=== PATIENT | male | born 1995 | race Caucasian/White ===

== ENCOUNTER 2018-06-15 04:30 | Emergency (ER) | payer MEDICAID ==
[~2018-06-15] VITALS: Ht 185.4 cm; Wt 97.5 kg
[2018-06-15 05:49] VITALS: BP 115/65
[2018-06-15 06:39] LABS: microscopic required? YES; urine erythrocyte 3+ (NEGATIVE)
== END 2018-06-15 05:49 | disposition home or self-care (01) ==
LOC: ED 04:30
PROVIDERS: Specialist
DX: N39.0 Urinary tract infection, site not specified (principal)
CPT/HCPCS: 87491; 87591; J0696

== ENCOUNTER 2018-09-29 10:20 | Emergency (ER) | payer SELFPAY ==
[2018-09-29 10:26] VITALS: Ht 185.4 cm
[2018-09-29 11:48] VITALS: BP 132/84
== END 2018-09-29 11:48 | disposition home or self-care (01) ==
LOC: ED 10:20
DX: S93.401A Sprain of unspecified ligament of right ankle, initial encounter (principal); Z98.890 Other specified postprocedural states; X50.1XXA Overexertion from prolonged static or awkward postures, initial encounter; Y93.89 Activity, other specified; Y92.89 Other specified places as the place of occurrence of the external cause; Y99.8 Other external cause status

== ENCOUNTER 2018-09-30 19:38 | Emergency (ER) | payer SELFPAY ==
[2018-09-30 19:45] VITALS: Ht 185.4 cm
[2018-09-30 20:18] VITALS: BP 129/75
== END 2018-09-30 20:18 | disposition home or self-care (01) ==
LOC: ED 19:38
DX: S93.401A Sprain of unspecified ligament of right ankle, initial encounter (principal); X58.XXXA Exposure to other specified factors, initial encounter; Y93.89 Activity, other specified; Y92.89 Other specified places as the place of occurrence of the external cause; Y99.8 Other external cause status